=== PATIENT | male | born 1960 | race Caucasian/White ===

== ENCOUNTER 2016-09-06 10:50 | Emergency (ER) | payer SELFPAY ==
[~2016-09-06] VITALS: Ht 170.2 cm; Wt 74.0 kg
[~2016-09-06 10:50] MED LIST: PERC10TA26 PO
[2016-09-06 10:51] VITALS: BP 145/72; PULSE 84; RESP 16; TEMP 98; O2SAT 96
--- NOTE | 2016-09-06 11:31 | PD ---
HPI Chief Complaint: Fall Time Seen by Provider: 11:31 Travel History International Travel<30 days: No Contact w/Intl Traveler<30days: No Traveled to known affect area: No History of Present Illness HPI 56-year-old male presents to the emergency Department with complaint of right lateral rib cage pain after falling from a [employer] 2 days ago and landing on the ball of the [employer] on his right side. He denies hitting his head, loss consciousness, neck pain, back pain. Denies abdominal pain, nausea, vomiting. Denies hemoptysis, hematemesis. Denies shortness of breath. Reports pain is worse with deep breathing and certain movements. He has not taken any medications to alleviate his symptoms. He did use an Nathan wrap to bandage the area. No known allergies. Has no other medical complaints. No other modifying factors or associated signs and symptoms. PFSH Past Medical History Kidney Stones: Yes Social History Alcohol Use: No Tobacco Use: No Substance Use: No Allergies-Medications (Allergen,Severity, Reaction): Coded Allergies: No Known Allergies (Verified , 10/25/10) Reported Meds & Prescriptions Reported Meds & Active Scripts Active Tessalon Perles (Benzonatate) 100 Mg Cap 100 Mg PO TID PRN Ibuprofen 800 Mg Tab 800 Mg PO Q6HR PRN Robaxin (Methocarbamol) 500 Mg Tab 500 Mg PO QID PRN Review of Systems Except as stated in HPI: all other systems reviewed are Neg Physical Exam Narrative GENERAL: Well-nourished, well-developed male patient, in no acute distress SKIN: Warm and dry. HEAD: Atraumatic. Normocephalic. EYES: Pupils equal and round. No scleral icterus. No injection or drainage. ENT: Mucosa pink and moist. NECK: Trachea midline. CHEST: Right lateral rib cage with reproducible tenderness at approximately the fifth through eighth rib; no crepitance or deformity. The area is with ecchymosis and mild edema, without erythema. No retractions or use of accessory muscles. CARDIOVASCULAR: Regular rate and rhythm. No murmur appreciated. RESPIRATORY: No accessory muscle use. Clear to auscultation. Breath sounds equal bilaterally. GASTROINTESTINAL: Abdomen soft, non-tender, nondistended. Hepatic and splenic margins not palpable. Bowel sounds are active 4 quadrants. MUSCULOSKELETAL: No obvious deformities. No clubbing. No cyanosis. No edema. NEUROLOGICAL: Awake and alert. Oriented 3. No obvious cranial nerve deficits. Motor grossly within normal limits. Normal speech. Moves all extremities. 5/5 strength to all extremities. PSYCHIATRIC: Appropriate mood and affect; insight and judgment normal. Data Data Last Documented VS Vital Signs Date Time Temp Pulse Resp B/P Pulse Ox O2 Delivery O2 Flow Rate FiO2 09/06/16 10:51 98.0 84 16 145/72 96 Orders Ribs, Uni (W/Exp Cxr-Min 3vw) (09/06/16 ) Resp Incentive Spirometry (09/06/16 ) [facility] Medical Decision Making Medical Screen Exam Complete: Yes Emergency Medical Condition: Yes Medical Record Reviewed: Yes Differential Diagnosis rib Fracture, rib contusion, fall Narrative Course 56-year-old male with right rib cage injury from a fall on the hitch of a [employer] truck 2 days ago. He denies hitting his head or loss of consciousness. Denies neck pain or back pain. Patient is in no acute distress and his oxygen saturation is 96% on room air. No retractions or tachypnea. No crepitance or deformity to the affected area. Lungs are clear and equal throughout. Patient denies hemoptysis or hematemesis. After the patient pain medication and he declined at this time. Incentive spirometer ordered. Right rib with expiratory chest x-ray ordered. 1227: Right rib with expiratory chest x-ray concludes an unremarkable examination of the right ribs and lungs. Incentive spirometer provided for home. Ibuprofen and Robaxin prescribed for home. Patient verbalizes understanding and agreement with treatment plan. Patient is medically cleared and stable for discharge. Discussed reasons to return to the emergency department. Instructed patient to follow up with primary care provider. Patient agrees with treatment plan. The patients vital signs are stable and the patient is stable for outpatient follow-up and treatment. Patient discharged home, stable and in no acute distress. 1233: Upon discussion of x-ray results and disposition twice this patient has had a cough for the last couple weeks and wants no Cough and the pain. Tessalon Perles prescribed for home. Instructed to follow-up with primary care provider. Diagnosis Primary Impression: Contusion of rib on right side Qualified Code: S20.211A - Contusion of rib on right side, initial encounter Additional Impression: Cough Referrals: Primary Care Physician Patient Instructions: General Instructions, Rib Contusion (ED) Departure Forms: Tests/Procedures, Work Release Enter return to work date: September 11, 2016 Additional Instructions: Ibuprofen or Tylenol as directed and as needed to reduce pain Robaxin as prescribed and as needed to reduce muscle spasms Heating pad and/or ice to affected area to reduce pain Avoid aggravating activities; increase activity as tolerated Incentive spirometer every 2 hours while awake for deep breathing Follow-up with a primary care provider Return to the emergency department immediately with worsening of symptoms Med/Other Pt SpecificInfo: Prescription(s) given Scripts Methocarbamol (Robaxin)500 Mg [id number] Mg PO QID PRN (MUSCLE SPASM) #30 TAB Ref 0 Prov:Kimberly Wilson 09/06/16 Benzonatate (Tessalon Perles)100 Mg [id number] Mg PO TID PRN (COUGH) #20 CAP Ref 0 Prov:Kimberly Wilson 09/06/16 Ibuprofen 800 Mg [id number] Mg PO Q6HR PRN (PAIN) #30 TAB Ref 0 Prov:Kimberly Wilson 09/06/16 Disposition: 01 DISCHARGE HOME Condition: Stable Kimberly Wilson September 06, 2016 11:31
--- NOTE | 2016-09-06 12:14 | RADRPT ---
EXAM DATE/TIME: 09/06/2016 11:43 [facility] COMPARISON: No previous studies available for comparison. INDICATIONS : Fell on trailer hitch two days ago, right lateral rib pain. MEDICAL HISTORY : None. SURGICAL HISTORY : None. ENCOUNTER: Initial ACUITY: 2 days PAIN SCORE: 8/10 LOCATION: Right ribs. FINDINGS: Multiple views of the right ribs were performed. There is no evidence of displaced fracture. No nova tructive lesions or areas of periosteal thickening are seen. Expiratory view of the chest is negativ e for pneumothorax. The mediastinal structures are midline. CONCLUSION: Unremarkable examination of the right ribs and chest. Christopher Hood MD on September 06, 2016 at 12:11 Board Certified Radiologist. This report was verified electronically.
[2016-09-06] MEDS ORDERED: ROBA500T PO ×2 (12:29→12:50)
[2016-09-06] MEDS ORDERED: IBUP800T23 PO (12:29)
[2016-09-06] MEDS ORDERED: BENZ100 PO (12:32)
== END 2016-09-06 13:24 | disposition home or self-care (01) ==
LOC: NEPK 10:50
DX: S20.211A Contusion of right front wall of thorax, initial encounter (principal); R05 Cough; Z87.442 Personal history of urinary calculi; W17.89XA Other fall from one level to another, initial encounter; W22.09XA Striking against other stationary object, initial encounter
CPT/HCPCS: 71101; 99283